=== PATIENT | female | born 1975 | race Caucasian/White ===

== ENCOUNTER 2024-08-27 19:48 | Emergency (ER) | payer SELFPAY ==
[~2024-08-27] VITALS: Ht 167.6 cm; Wt 77.1 kg
[2024-08-27 19:49] VITALS: BP 113/83; PULSE 99; RESP 16; TEMP 98.2; O2SAT 98
[2024-08-27 20:34] LABS: BASOPHILS % (AUTO) 0.9 % (0.0-2.0); EOSINOPHILS # (AUTO) 0.1 K/uL (0-0.4); EOSINOPHILS % (AUTO) 2.1 % (0.0-4.0); HEMATOCRIT 37.6 % (36-48); HEMOGLOBIN 13.1 g/dL (12.0-16.0); LYMPHOCYTES # (AUTO) 2.4 K/uL (2.5-16.5); LYMPHOCYTES % (AUTO) 42.2 % (20.5-51.1); MEAN CORPUSCULAR HEMOGLOBIN 33 pg (27-31); MEAN CORPUSCULAR HGB CONC 35 g/dL (33-37); MEAN CORPUSCULAR VOLUME 95.2 fL (80-94); MONOCYTES # (AUTO) 0.9 K/uL (0.8-1.0); MONOCYTES % (AUTO) 16.3 % (1.7-9.3); NEUTROPHILS # (AUTO) 2.1 K/uL (1.8-7.7); NEUTROPHILS % (AUTO) 38.5 % (42.2-75.2); PLATELET COUNT (AUTO) 173 K/uL (140-450); RED BLOOD CELL COUNT(AUTO) 3.95 MIL/uL (4.20-5.40); RED CELL DISTRIBUTION WIDTH 13.5 % (11.6-13.7); WHITE BLOOD COUNT (AUTO) 5.6 K/uL (4.8-10.8)
[2024-08-27 20:52] LABS: CREATININE 0.8 mg/dL (0.6-1.3)
[2024-08-27] MEDS: POTASSIUM CHLORIDE 20% 40 MEQ/15 ML UDC PO ONE (21:15)
[2024-08-27 21:20] LABS: ANION GAP 18.5 (8-16); CALCIUM 8.6 mg/dL (8.5-10.1); CARBON DIOXIDE 24.3 mmol/L (21-32)
[2024-08-27 21:44] LABS: POTASSIUM 2.8 mmol/L (3.5-5.1)
[2024-08-27 23:41] VITALS: BP 116/70; PULSE 89; RESP 14; O2SAT 98
== END 2024-08-28 00:12 | disposition home or self-care (01) ==
LOC: MED 19:48
DX: E16.2 Hypoglycemia, unspecified (principal); E87.6 Hypokalemia; Z98.84 Bariatric surgery status; Z86.73 Personal history of transient ischemic attack (TIA), and cerebral infarction without residual deficits; Z88.0 Allergy status to penicillin; Z88.2 Allergy status to sulfonamides; Z88.8 Allergy status to other drugs, medicaments and biological substances
CPT/HCPCS: 36415; 80048; 82948; 85025; 99283